=== PATIENT | female | born 1985 | race Caucasian/White ===

== ENCOUNTER 2018-07-30 13:37 | Emergency (ER) | payer MEDICAID ==
[2018-07-30] MEDS ORDERED: METOCLOPRAMIDE HCL 10 MG/2 ML VIAL IVP ONE (13:52)
[2018-07-30] MEDS ORDERED: KETOROLAC 30 MG/ML VIAL IVP ONE (13:52)
[2018-07-30] MEDS ORDERED: DIPHENHYDRAMINE HCL 50 MG/ML VIAL IVP ONE (13:52)
[2018-07-30] MEDS ORDERED: SODIUM CHLORIDE 0.9% 500 ML IV ONE (13:52)
--- NOTE | 2018-07-30 13:57 | Emergency Department Record ---
History of Present Illness - General Chief Complaint: Headache Migraine Stated Complaint: HEADACHE Time Seen by Provider: 07/30/18 13:43 Source: Patient Mode of Arrival: Ambulatory Limitations: No limitations - History of Present Illness Initial Comments: The patient is here due to the acute onset of a L sided frontal OAKES about 3 hours ago while at work. The pain is sharp and stabbing and located over the L frontal area. She does have mild photophobia but no neck pain, fever, arm or leg numbness or weakness, or balance issues. The patient states she has not had similar OAKES's in the past. There has been no recent illnesses, any trauma or new medicines. The patient has had migraine OAKES's in the past with vomiting and photophobia but this OAKES is slightly different. MD Complaint: Headache Onset/Timin -: Hour(s) Onset Description: Sudden Location: Frontal, Left Severity: Moderate Severity scale (1-10): 10 Quality: Sharp Consistency: Constant Improves With: Nothing Worsens With: None Treatments Prior to Arrival: Ibuprofen Treatment Prior to Arrival Comment:: Advil at 1100 - Related Data Home Medications Medication Instructions Recorded Confirmed Last Taken No Home Med [NO HOME MEDS] 07/30/18 07/30/18 Unknown Allergies Allergy/AdvReac Type Severity Reaction Status Date / Time penicillin Allergy ANAPHYLAXIS Verified 07/30/18 13:39 Travel Screening - Travel/Exposure Within Last 30 Days Have you traveled within the last 30 days?: No - Travel/Exposure Within Last Year Have you traveled outside the [place] in the last year?: No - Additonal Travel Details Have you been exposed to anyone with a communicable illness?: No - Travel Symptoms Symptom Screening: None Review of Systems Constitutional: Denies: Chills, Fever Eyes: Denies: Eye discharge ENT: Denies: Congestion Respiratory: Denies: Cough, Dyspnea Past Medical History - SOCIAL HISTORY Smoking Status: Current every day smoker Alcohol Use: None Drug Use: None - RESPIRATORY Hx Respiratory Disorders: No - CARDIOVASCULAR Hx Cardio Disorders: No - NEURO Hx Neuro Disorders: No - GI Hx GI Disorders: No - Hx Genitourinary Disorders: No - ENDOCRINE Hx Endocrine Disorders: No - MUSCULOSKELETAL Hx Musculoskeletal Disorders: Yes - PSYCH Hx Psych Problems: No - HEMATOLOGY/ONCOLOGY Hx Hematology/Oncology Disorders: No Family Medical History Any Significant Family History?: Yes Hx Heart Disease: Father Physical Exam - General General Appearance: Alert, Oriented x3, Cooperative, Mild distress (due to the OAKES.) - Head Head exam: Atraumatic, Normocephalic, Normal inspection - Eye Eye exam: Normal appearance, PERRL, EOMI. negative: Nystagmus - ENT ENT exam: Normal exam, Mucous membranes moist, Normal external ear exam, Normal orophraynx, TM's normal bilaterally Throat exam: Normal inspection. negative: Tonsillar erythema, Tonsillar exudate - Neck Neck exam: Normal inspection, Full ROM. negative: Meningismus (the neck is very supple.), Tenderness - Respiratory Respiratory exam: Normal lung sounds bilaterally. negative: Respiratory distress - Cardiovascular Cardiovascular Exam: Regular rate, Normal rhythm, Normal heart sounds - GI/Abdominal GI/Abdominal exam: Soft, Normal bowel sounds. negative: Tenderness - Extremities Extremities exam: Normal inspection, Full ROM, Normal capillary refill. negative: Tenderness - Neurological Neurological exam: Alert, Normal gait, Oriented X3, Reflexes normal, Other (Neg Drift and Rhomberg.). negative: Abnormal gait, Altered, Motor sensory deficit - Psychiatric Psychiatric exam: negative: Anxious, Depressed Course Vital Signs 07/30/18 13:41 Temperature 98.1 F Pulse Rate 97 H Respiratory 20 Rate Blood Pressure 138/84 Pulse Ox 100 - Reevaluation(s) Reevaluation #1: The patient is doing a lot better at this time. Her pain is 65% improved and the patient appears to be MUCH more comfortable. She denies any visual changes, neck pain, numbness, or weakness. She is talking normally and no longer has photophobia. I did discuss the neg CT and lab work with the patient. Due to the pain being much better with a migraine cocktail I doubt any significant intracranial abnormality causing her symptoms. Even thought she is improved and appears very comfortable I did recommend a LP to R/O SAH. I did explain to the patient that a normal CT and Neuro exam within 6 hours of the onset of the OAKES does R/O SAH with a 99% accuracy but there could be a 1% chance we could be missing a leaking aneurysm. The risk of missing the aneurysm are that the patient could go home and have worsening pain, a stroke, become disabled and even . The patient understands and accepts the risks and presently clearly has proper decision making capacity. She was instructed to see her PCP for recheck and to return to the ER for any worsening symptoms. 07/30/18 14:59 07/30/18 15:04 Medical Decision Making - Data Complexity MDM Data: Labs Ordered and/or Reviewed, X-Ray Ordered and/or Reviewed - Lab Data Result diagrams: 07/30/18 13:55 07/30/18 13:55 - Radiology Data Radiology results: Report reviewed (Head CT: Neg for any acute changes.) Disposition Disposition: Discharge Clinical Impression: Headache Qualifiers: Headache type: unspecified Headache chronicity pattern: acute headache Intractability: not intractable Qualified Code(s): R51 - Headache Disposition: Home, Self-Care Condition: (2) Stable Instructions: Acute Headache (ED) Additional Instructions: Please take the Tylenol # 3 as directed and use your home pain medicines if needed. Please see your family doctor later this week if not better. Return to the ER for any worsening symptoms. Forms: Patient Portal Access Time of Disposition: 15:03 Quality - Quality Measures Quality Measures: N/A - Blood Pressure Screening View Details: Yes Does Patient Have Any of the Following: No Blood Pressure Classification: Pre-Hypertensive BP Reading Systolic Measurement: 138 Diastolic Measurement: 84 Screening for High Blood Pressure: < Pre-Hypertensive BP, F/U Documented > [ [id number]] Pre-Hypertensive Follow-up Interventions: Referral to alternative/primary care provider.
[2018-07-30 14:07] LABS: BASO % 0.4 % (0-6); EOS % 5.7 % (0-6); GRAN % 57.3 % (47-80); HEMATOCRIT 44.4 % (35.0-47.0); LYMPH % 30.6 % (16-45); MEAN CELL VOLUME 97.4 fl (81-97); MEAN CORPUSCULAR HEMOGLOBIN 32.9 pg (27-33); MEAN CORPUSCULAR HGB CONC 33.8 g/dl (32-36); MEAN PLATELET VOLUME 9.3 fl (7.4-10.4); PLATELET COUNT 330 K/uL (130-400); RED BLOOD COUNT 4.56 M/uL (3.80-5.40); RED CELL DISTRIBUTION WIDTH 12.6 % (11.5-14.5); WHITE BLOOD COUNT W/O DIFF 9.8 K/uL (4.2-12.2)
[2018-07-30 14:20] LABS: BLOOD UREA NITROGEN 10 mg/dL (6-20); CREATININE 0.6 mg/dL (0.5-0.9); EST GLOMERULAR FILTRATION RATE > 60 mL/min
[2018-07-30 14:21] LABS: TOTAL PROTEIN 6.9 g/dL (6.6-8.7)
[2018-07-30 14:23] LABS: GLUCOSE,RANDOM 97 mg/dL (74-109)
[2018-07-30 14:25] LABS: ALT/SGPT 18 U/L (<33); AST/SGOT 17 U/L (10.0-35.0)
[2018-07-30 14:26] LABS: ALBUMIN 4.6 g/dL (4.0-5.0); ALKALINE PHOSPHATASE 68 U/L (35-104)
[2018-07-30] MEDS ORDERED: ACETAMINOPHEN W/ CODEINE 300MG/30MG TABLET PO ONE (15:02)
--- NOTE | 2018-07-31 15:22 | CT SCAN REPORT ---
EXAM: NONCONTRAST CT OF THE HEAD HISTORY: LEFT SIDED EYE PAIN AND HEADACHE, NO KNOWN INJURY. TECHNIQUE: Noncontrast CT of the head was obtained. Comparison: None. FINDINGS: No midline shift, mass effect, or abnormal intra or extraaxial fluid collection. No cerebral edema, focal boni or intracranial hemorrhage detected. The ventricle sizes are within normal limits. The basal cisterns do not appear effaced. The globes appears symmetric . The retrobulbar fat is clear. The visualized upper cervical spinal cord courses posteriorly in the central spinal canal which may be related to patient positioning on the scanner table. the visualized paranasal sinuses and mastoid air cells are clear. No evidence of displaced. calvarial fracture. IMPRESSION: NO ACUTE INTRACRANIAL FINDINGS. JOB NUMBER: [id number] MTDD
== END 2018-07-30 15:10 | disposition home or self-care (01) ==
LOC: ER 13:37
DX: R51 Headache (principal); H53.149 Visual discomfort, unspecified; F17.210 Nicotine dependence, cigarettes, uncomplicated
CPT/HCPCS: 99284 ×2; 96374; 96375; 96361; 85025; 80053; 70450; J1885; J1200; J2765